=== PATIENT | female | born 1940 | race Caucasian/White ===

== ENCOUNTER 2020-09-22 17:07 | Inpatient (IN) | payer MEDICARE ==
--- NOTE | 2020-09-22 17:39 | Emergency Department Report ---
HPI - General Chief Complaint: Weakness Time Seen by Provider: 09/22/20 17:19 - HPI HPI: This is a 80-year-old female presents to the emergency department via EMS from home with complaint of generalized weakness and fatigue. The patient does not speak much Estonian and therefore her son is currently at bedside translating for us. He says that the patient has been dealing with some episodes of elevated and/or uncontrolled blood pressure over the past week. She had her first Covid shot at the end of July. She was recently due for the second but the pharmacist canceled the appointment secondary to her uncontrolled blood pressure. She does have a history of hypertension but the son says that the patient believes it is secondary to anxiety. The patient says that she did not get much sleep last night and then complained throughout the day that she has generalized weakness and fatigue. The patient walks without any walker, cane or assistance, but the son has been helping her get around today because of her symptoms. She has a primary care physician but is not seen them regarding her symptoms. She denies any fever, chest pain, shortness of breath, lower extremity swelling, abdominal pain, nausea, vomiting, diarrhea, dysuria. She has not taken anything for symptoms prior to presentation today. ED Past Medical Hx - Past Medical History Hx Hypertension: Yes Additional medical history: high cholesterol - Social History Smoking Status: Never Smoker Substance Use Type: None - Medications Home Medications: Home Medications Medication Instructions Recorded Confirmed Last Taken Type Simvastatin 20 mg PO DAILY 05/25/13 09/22/20 Unknown History amLODIPine 5 mg PO DAILY 05/25/13 09/22/20 Unknown History Alendronate Sodium 70 mg PO QDAY 09/22/20 09/22/20 Unknown History Losartan/Hydrochlorothiazide 50 each PO QDAY 09/22/20 09/22/20 Unknown History [Losartan-Hctz 50-12.5 mg Tab] ED Review of Systems ROS: Stated complaint: WEAKNESS Other details as noted in HPI Comment: All other systems reviewed and negative Constitutional: weakness. denies: fever Eyes: denies: eye pain, vision change ENT: denies: ear pain, throat pain Respiratory: denies: cough, shortness of breath Cardiovascular: denies: chest pain, palpitations Gastrointestinal: denies: abdominal pain, vomiting Genitourinary: denies: dysuria, discharge Musculoskeletal: denies: back pain, arthralgia Skin: denies: rash, lesions Neurological: denies: numbness, paresthesias Physical Exam - Physical Exam Vital Signs: Vital Signs 09/22/20 17:31 Temperature 98.2 F Pulse Rate 75 Respiratory 16 Rate Blood Pressure 130/53 [Right] O2 Sat by Pulse 98 Oximetry Physical Exam: GENERAL: The patient is well-developed well-nourished. HENT: Normocephalic. Atraumatic. Patient has moist mucous membranes. EYES: Extraocular motions are intact. Pupils equal reactive to light bilaterally. No nystagmus. NECK: Supple. Trachea is midline. CHEST/LUNGS: Clear to auscultation. There is no respiratory distress noted. HEART/CARDIOVASCULAR: Regular. There is no tachycardia. There is no murmur. ABDOMEN: Abdomen is soft, nontender. Patient has normal bowel sounds. SKIN: Skin is warm and dry. NEURO: The patient is awake, alert, and oriented. The patient is cooperative. The patient has no focal neurologic deficits. Normal speech. Cranial nerves II through XII grossly intact. No facial asymmetry. No pronator drift or dysmetria. Muscle strength 5 out of 5 upper and lower extremities bilaterally. MUSCULOSKELETAL: There is no tenderness or deformity. There is no limitation range of motion. ED Course Vital Signs 09/22/20 17:31 Temperature 98.2 F Pulse Rate 75 Respiratory 16 Rate Blood Pressure 130/53 [Right] O2 Sat by Pulse 98 Oximetry ED Medical Decision Making - Lab Data Result diagrams: 09/22/20 17:45 09/22/20 17:45 Lab Results 09/22/20 09/22/20 09/22/20 Range/Units 17:45 17:45 17:45 WBC 4.8 (4.5-11.0) K/mm3 RBC 4.06 (3.65-5.03) M/mm3 Hgb 13.2 (10.1-14.3) gm/dl Hct 37.9 (30.3-42.9) % MCV 93 (79-97) fl MCH 33 H (28-32) pg MCHC 35 H (30-34) % RDW 12.7 L (13.2-15.2) % Plt Count 347 (140-440) K/mm3 Lymph % (Auto) 17.9 (13.4-35.0) % Hardy % (Auto) 9.4 H (0.0-7.3) % Eos % (Auto) 0.0 (0.0-4.3) % Baso % (Auto) 0.3 (0.0-1.8) % Lymph # (Auto) 0.9 L (1.2-5.4) K/mm3 Hardy # (Auto) 0.5 (0.0-0.8) K/mm3 Eos # (Auto) 0.0 (0.0-0.4) K/mm3 Baso # (Auto) 0.0 (0.0-0.1) K/mm3 Seg Neutrophils % 72.4 H (40.0-70.0) % Seg Neutrophils # 3.5 (1.8-7.7) K/mm3 Sodium 121 L (137-145) mmol/L Potassium 3.8 (3.6-5.0) mmol/L Chloride 82.3 L (98-107) mmol/L Carbon Dioxide 28 (22-30) mmol/L Anion Gap 15 mmol/L BUN 10 (7-17) mg/dL Creatinine 0.5 L (0.6-1.2) mg/dL Estimated GFR > 60 ml/min BUN/Creatinine Ratio 20 % Glucose 106 H (65-100) mg/dL Hemoglobin A1c (4-6) % Calcium 9.1 (8.4-10.2) mg/dL Magnesium 1.90 (1.7-2.3) mg/dL Total Bilirubin 0.30 (0.1-1.2) mg/dL AST 20 (5-40) units/L ALT 25 (7-56) units/L Alkaline Phosphatase 53 (35-129) units/L Troponin T < 0.010 (0.00-0.029) ng/mL Total Protein 8.1 (6.3-8.2) g/dL Albumin 4.3 (3.9-5) g/dL Albumin/Globulin Ratio 1.1 % TSH 2.230 (0.270-4.200) mlU/mL 09/22/20 Range/Units 17:45 WBC (4.5-11.0) K/mm3 RBC (3.65-5.03) M/mm3 Hgb (10.1-14.3) gm/dl Hct (30.3-42.9) % MCV (79-97) fl MCH (28-32) pg MCHC (30-34) % RDW (13.2-15.2) % Plt Count (140-440) K/mm3 Lymph % (Auto) (13.4-35.0) % Hardy % (Auto) (0.0-7.3) % Eos % (Auto) (0.0-4.3) % Baso % (Auto) (0.0-1.8) % Lymph # (Auto) (1.2-5.4) K/mm3 Hardy # (Auto) (0.0-0.8) K/mm3 Eos # (Auto) (0.0-0.4) K/mm3 Baso # (Auto) (0.0-0.1) K/mm3 Seg Neutrophils % (40.0-70.0) % Seg Neutrophils # (1.8-7.7) K/mm3 Sodium (137-145) mmol/L Potassium (3.6-5.0) mmol/L Chloride (98-107) mmol/L Carbon Dioxide (22-30) mmol/L Anion Gap mmol/L BUN (7-17) mg/dL Creatinine (0.6-1.2) mg/dL Estimated GFR ml/min BUN/Creatinine Ratio % Glucose (65-100) mg/dL Hemoglobin A1c 6.1 H (4-6) % Calcium (8.4-10.2) mg/dL Magnesium (1.7-2.3) mg/dL Total Bilirubin (0.1-1.2) mg/dL AST (5-40) units/L ALT (7-56) units/L Alkaline Phosphatase (35-129) units/L Troponin T (0.00-0.029) ng/mL Total Protein (6.3-8.2) g/dL Albumin (3.9-5) g/dL Albumin/Globulin Ratio % TSH (0.270-4.200) mlU/mL - EKG Data -: EKG Interpreted by Me EKG shows normal: sinus rhythm, axis, intervals, QRS complexes, ST-T waves Rate: normal - EKG Data When compared to previous EKG there are: previous EKG unavailable Interpretation: normal EKG - Radiology Data Radiology results: report reviewed, image reviewed interpreted by me: Chest x-ray does not show any acute process. There are no pleural effusions, obvious pneumonia and there is no pneumothorax. No significant cardiomegaly. CT BRAIN: 09/22/2020 INDICATION / CLINICAL INFORMATION: Weakness. COMPARISON: None available. FINDINGS: BRAIN/INTRACRANIAL STRUCTURES: Unenhanced CT images of the brain demonstrate no evidence of acute intracranial abnormality. Ventricles and sulci are somewhat prominent in size, consistent with age- related atrophic change. Some chronic white matter hypoattenuation is noted in the cerebral hemispheric white matter, somewhat more pronounced in the left frontal subcortical white matter. There is no CT evidence of acute large vessel territory ischemic injury, hemorrhage, or mass. There are no abnormal extra- axial fluid collections. EXTRACRANIAL STRUCTURES: Unremarkable. IMPRESSION: No acute abnormality. Chronic and age-related changes. - Medical Decision Making This patient presents to the emergency department with generalized weakness and fatigue. On examination she does not have any focal, motor or sensory deficits and her cranial nerves are intact. EKG did not show any morphology consistent with ST elevation myocardial infarction or any arrhythmia. CT scan of the head without contrast did not show any hemorrhage, large vessel occlusion, or any other acute process. Chest x-ray did not show any pneumonia, pleural effusions, pneumothorax, or any acute process. The patient's labs are mostly unremarkable including CBC, metabolic panel, troponin, thyroid function and urinalysis, but it is significant for moderate to severe hyponatremia with a sodium level of 121. This is most likely the reason for the patient's symptoms. Patient was initially given a 500 cc normal saline bolus and once the labs resulted with the hyponatremia she was placed on maintenance IV fluid at 125 cc/h. Patient will be admitted to the hospital for further evaluation and treatment and was accepted for admission by the hospitalist, Dr. Montoya. Critical Care Time: No Critical care attestation.: If time is entered above; I have spent that time in minutes in the direct care of this critically ill patient, excluding procedure time. ED Disposition Clinical Impression: Hyponatremia syndrome, Weakness Disposition: OP ADMIT IP TO THIS HOSP Is pt being admited?: Yes Condition: Serious Time of Disposition: 20:11 - Assessment Assessment Interval: Baseline - Level of Consciousness 1a. Level of Consciousness: alert/keenly responsive - LOC Questions 1b. LOC Questions: answers both correctly - LOC Command 1c. LOC Commands: performs tasks correctly - Best Gaze 2. Best Gaze: normal - Visual 3. Visual: no visual loss - Facial Palsy 4. Facial Palsy: normal symmetrical movement - Motor Arm 5a. Motor Arm Left: no drift 5b. Motor Arm Right: no drift - Motor Leg 6a. Motor Leg Left: no drift 6b. Motor Leg Right: no drift - Limb Ataxia 7. Limb Ataxia: absent - Sensory 8. Sensory: normal - Best Language 9. Best Language: no aphasia - Dysarthria 10. Dysarthria: normal - Extinction and Inattention 11. Extinction/Inattention: no abnormality - Scoring Total Score: 0 Stroke Severity: No Stroke Symptoms
--- NOTE | 2020-09-22 17:52 | XRay Report ---
CHEST 1 VIEW 09/22/2020 5:29 PM INDICATION / CLINICAL INFORMATION: Weakness. COMPARISON: None available. FINDINGS: SUPPORT DEVICES: None. HEART / MEDIASTINUM: No significant abnormality. LUNGS / PLEURA: No significant pulmonary or pleural abnormality. No pneumothorax. ADDITIONAL FINDINGS: No significant additional findings. IMPRESSION: 1. No acute findings. Signer Name: Charles Swanson MD Signed: 09/22/2020 5:48 PM Workstation Name: [id number]
[2020-09-22] MEDS ORDERED: SODIUM CHLORIDE 0.9% 500 ML 500 ML IV ONE (18:10)
[2020-09-22 18:24] LABS: Basophils % (Auto) 0.3 % (0.0-1.8); Hematocrit 37.9 % (30.3-42.9); Hemoglobin 13.2 gm/dl (10.1-14.3); Lymphocytes # (Auto) 0.9 K/mm3 (1.2-5.4); Lymphocytes % (Auto) 17.9 % (13.4-35.0); Mean Corpuscular HGB Conc 35 % (30-34); Mean Corpuscular Volume 93 fl (79-97); Monocytes # (Auto) 0.5 K/mm3 (0.0-0.8); Monocytes % (Auto) 9.4 % (0.0-7.3); Platelet Count 347 K/mm3 (140-440); Red Blood Count 4.06 M/mm3 (3.65-5.03); Red Cell Distribution Width 12.7 % (13.2-15.2)
[2020-09-22 18:44] LABS: Alanine Aminotransferase 25 units/L (7-56); Albumin 4.3 g/dL (3.9-5); BUN/Creatinine Ratio 20; Blood Urea Nitrogen 10 mg/dL (7-17); Calcium 9.1 mg/dL (8.4-10.2); Hemolysis Index 3
[2020-09-22] MEDS ORDERED: SODIUM CHLORIDE 0.9% 1000 ML 1,000 ML IV ONE (18:54)
--- NOTE | 2020-09-22 18:56 | Cat Scan Report ---
CT BRAIN: 09/22/2020 INDICATION / CLINICAL INFORMATION: Weakness. COMPARISON: None available. FINDINGS: BRAIN/INTRACRANIAL STRUCTURES: Unenhanced CT images of the brain demonstrate no evidence of acute int racranial abnormality. Ventricles and sulci are somewhat prominent in size, consistent with age-relat ed atrophic change. Some chronic white matter hypoattenuation is noted in the cerebral hemispheric white matter, somewhat more pronounced in the left frontal subcortical white matter. There is no CT evidence of acute large vessel territory ischemic injury, hemorrhage, or mass. There a re no abnormal extra-axial fluid collections. EXTRACRANIAL STRUCTURES: Unremarkable. IMPRESSION: No acute abnormality. Chronic and age-related changes. All CT scans at this location are performed using dose reduction to ALARA by means of automated expos ure control. Signer Name: Danilo Gutierrez MD Signed: 09/22/2020 6:52 PM Workstation Name: [id number]
[2020-09-22 21:09] LABS: Bilirubin,Urine NEG (Negative); Blood,Urine NEG (Negative); Color,Urine Straw (Yellow); Protein,Urine <15 mg/dL mg/dL (Negative); Urobilinogen,Urine < 2.0 mg/dL (<2.0)
--- NOTE | 2020-09-22 21:31 | History and Physical Report ---
History of Present Illness Date of examination: 09/22/20 Date of admission: 09/22/20 20:11 Chief complaint: hyponatremia History of present illness: This is a 80-year-old female presents to the emergency department via EMS from home with complaint of generalized weakness and fatigue. The patient does not speak much Korean and therefore her son is currently at bedside translating for us. He says that the patient has been dealing with some episodes of elev ated and/or uncontrolled blood pressure over the past week. She had her first Covid shot at the end of July. She was recently due for the second but the pharmacist canceled the appointment secondary to her uncontrolled blood pressure. She does have a history of hypertension but the son says that the patient believes it is secondary to anxiety. The patient says that she did not get much sleep last night and then complained throughout the day that she has generalized weakness and fatigue. The patient walks without any walker, cane or assistance, but the son has been helping her get around today because of her symptoms. She has a primary care physician but is not seen them regarding her symptoms. She denies any fever, chest pain, shortness of breath, lower extremity swelling, abdominal pain, nausea, vomiting, diarrhea, dysuria. She has not taken anything for symptoms prior to presentation today. ED work-up shows WBC 4.8, hemoglobin 13.2, platelets 347 sodium level 121 potassium level 3.8, creatinine 0.5, serum glucose 106 Magnesium 1.9 troponin less than 0.01 Patient seen in the ED. Son at the bedside. Patient reports generalized weakness after taking Covid shot. She said she does not know if it is from the Covid or just anxiety. Patient reported history of hypertension, blood pressure medicine including hydrochlorothiazide. Patient denies chest pain, shortness of breath and nausea and vomiting. Patient is alert and oriented son at the bedside assisting with explanationpatient does not speak much Korean. I reviewed her lab, her medication record, and her vital signs. Patient is not in acute distress. Past History Past Surgical History: No surgical history Social history: lives with family Family history: no significant family history Medications and Allergies Allergies Allergy/AdvReac Type Severity Reaction Status Date / Time No Known Allergies Allergy Unverified 05/25/13 17:15 Home Medications Medication Instructions Recorded Confirmed Last Taken Type Simvastatin 20 mg PO DAILY 05/25/13 09/22/20 Unknown History amLODIPine 5 mg PO DAILY 05/25/13 09/22/20 Unknown History Alendronate Sodium 70 mg PO QDAY 09/22/20 09/22/20 Unknown History Losartan/Hydrochlorothiazide 50 each PO QDAY 09/22/20 09/22/20 Unknown History [Losartan-Hctz 50-12.5 mg Tab] Active Meds: Active Medications Sodium Chloride (Nacl 0.9% 1000 Ml) 1,000 mls @ 125 mls/hr IV ONCE ONE Stop: 09/23/20 02:53 Last Admin: 09/22/20 19:00 Dose: 125 mls/hr Documented by: Review of Systems Constitutional: fatigue, weakness Ears, nose, mouth and throat: no epistaxis, no bleeding gums Breasts: no discharge Cardiovascular: high blood pressure, no dyspnea on exertion Respiratory: no cough, no congestion Gastrointestinal: no abdominal pain Genitourinary Female: no pelvic pain Musculoskeletal: muscle weakness, muscle cramps, no neck stiffness Integumentary: no bullae, no lesions Neurological: no convulsions Psychiatric: anxiety, no confusion Endocrine: polydipsia Hematologic/Lymphatic: no easy bruising, no easy bleeding Allergic/Immunologic: no urticaria, no allergic rhinitis Exam - Constitutional Vitals: Temp Pulse Resp BP Pulse Ox 98.2 F 81 21 135/62 95 09/22/20 19:00 09/22/20 21:00 09/22/20 21:00 09/22/20 21:00 09/22/20 21:00 General appearance: Present: mild distress - EENT Eyes: Present: PERRL ENT: hearing intact, clear oral mucosa - Neck Neck: Present: supple, normal ROM - Respiratory Respiratory effort: normal Respiratory: bilateral: CTA - Cardiovascular Heart Sounds: Present: S1 & S2. Absent: rub, click - Extremities Extremities: pulses symmetrical, No edema Peripheral Pulses: within normal limits - Abdominal General gastrointestinal: Present: soft, non-tender, non-distended, normal bowel sounds Female genitourinary: Present: normal - Integumentary Integumentary: Present: clear, warm, dry - Musculoskeletal Musculoskeletal: generalized weakness - Psychiatric Psychiatric: appropriate mood/affect, intact judgment & insight, cooperative - Neurologic Neurologic: CNII-XII intact, moves all extremities - Allied Health Allied health notes reviewed: nursing HEART Score - HEART Score Troponin: Troponin T < 0.010 ng/mL (0.00-0.029) 09/22/20 17:45 Results - Labs CBC & Chem 7: 09/22/20 17:45 09/22/20 17:45 Labs: Abnormal lab results 09/22/20 09/22/20 Range/Units 17:45 17:45 MCH 33 H (28-32) pg MCHC 35 H (30-34) % RDW 12.7 L (13.2-15.2) % Hood % (Auto) 9.4 H (0.0-7.3) % Lymph # (Auto) 0.9 L (1.2-5.4) K/mm3 Seg Neutrophils % 72.4 H (40.0-70.0) % Sodium 121 L (137-145) mmol/L Chloride 82.3 L (98-107) mmol/L Creatinine 0.5 L (0.6-1.2) mg/dL Glucose 106 H (65-100) mg/dL Assessment and Plan - Patient Problems (1) Hyponatremia syndrome Current Visit: Yes Status: Acute Plan to address problem: Questionable cause slight dehydration We will hold hydrochlorothiazide Start IV hydration with normal saline Monitor sodium level, urine sodium and osmolarity We will consult director of teaching and learning if needed. (2) Generalized weakness Current Visit: Yes Status: Acute Plan to address problem: Questionable causehyponatremia PT OT consult (3) Essential (primary) hypertension Current Visit: Yes Status: Acute Plan to address problem: Monitor blood pressure Resume home antihypertensive As needed hydralazine (4) Hyperlipemia Current Visit: Yes Status: Acute Plan to address problem: resume home statin (5) DVT prophylaxis Current Visit: Yes Status: Acute Plan to address problem: Subcutaneous Lovenox
[2020-09-22] MEDS ORDERED: hydrALAZINE 20 MG/1 ML INJ IV PRN (21:51)
[2020-09-22] MEDS ORDERED: MAGNESIUM HYDROXIDE (MOM) ORAL LIQD UDC PO PRN (21:52)
[2020-09-22] MEDS ORDERED: ALUM-MAG HYDROXIDE-SIMETHICONE 200-200-20MG/5ML ORAL LIQD 30 ML PO PRN (21:52)
[2020-09-22] MEDS ORDERED: ONDANSETRON 4 MG/2 ML INJ IV PRN (21:52)
[2020-09-22] MEDS ORDERED: ACETAMINOPHEN 325 MG TAB PO PRN (21:52)
[2020-09-22] MEDS ORDERED: ALPRAZolam 0.25 MG TAB PO PRN (21:54)
[2020-09-22] MEDS ORDERED: traZODone 50 MG TAB PO PRN (21:54)
[2020-09-22] MEDS ORDERED: traMADol 50 MG TAB PO PRN (21:54)
[2020-09-22] MEDS ORDERED: SODIUM CHLORIDE 0.9% 1000 ML 1,000 ML IV SCH (22:00)
[2020-09-23] MEDS: PRAVASTATIN 40 MG TAB PO SCH ×2 (00:50→22:03)
[2020-09-23 06:41] LABS: Basophils % (Auto) 0.3 % (0.0-1.8); Eosinophils % (Auto) 0.3 % (0.0-4.3); Hematocrit 36.6 % (30.3-42.9); Hemoglobin 12.3 gm/dl (10.1-14.3); Lymphocytes # (Auto) 1.7 K/mm3 (1.2-5.4); Lymphocytes % (Auto) 29.2 % (13.4-35.0); Mean Corpuscular HGB Conc 34 % (30-34); Mean Corpuscular Volume 94 fl (79-97); Monocytes # (Auto) 0.6 K/mm3 (0.0-0.8); Monocytes % (Auto) 10.5 % (0.0-7.3); Platelet Count 356 K/mm3 (140-440); Red Cell Distribution Width 12.4 % (13.2-15.2)
[2020-09-23 06:51] LABS: Chol/HDL Ratio 2.26 %
[2020-09-23] MEDS: amLODIPine 10 MG TAB PO SCH (09:34)
[2020-09-23] MEDS: ENOXAPARIN 40 MG/0.4 ML INJ SUB-Q SCH (09:35)
[2020-09-23] MEDS: LOSARTAN 50 MG TAB PO SCH (09:35)
[2020-09-23 11:05] LABS: Alanine Aminotransferase 22 units/L (7-56); Albumin 3.5 g/dL (3.9-5); Blood Urea Nitrogen 9 mg/dL (7-17); Calcium 8.2 mg/dL (8.4-10.2); Hemolysis Index 10
[2020-09-23 11:07] LABS: BUN/Creatinine Ratio 18
[2020-09-23 11:22] LABS: Osmolality,Urine 218 Mosm/kg
[2020-09-23] MEDS: DEXTROSE 5% IN WATER 1,000 ML IV SCH (12:42)
[2020-09-23] MEDS ORDERED: POTASSIUM CHLORIDE ER 20 MEQ TAB PO ONE (13:24)
--- NOTE | 2020-09-23 13:33 | Progress Note ---
Assessment and Plan Assessment and plan: #Hyponatremia Likely due to hydrochlorothiazide use Sodium on admission-121. Patient started on normal saline Sodium this a.m. 131. Due to overcorrection, will DC normal saline and start patient on D5 water at this time Monitor sodium level every 6 hours for now #Generalized weakness From hyponatremia #Hypertension Hold hydrochlorothiazide Monitor blood pressure closely #Hyperlipidemia Statins #DVT prophylaxis-Heparin products History Interval history: This is a 80-year-old female presents to the emergency department via EMS from home with complaint of generalized weakness and fatigue. The patient does not speak much [place] and therefore her son is currently at bedside translating for us. He says that the patient has been dealing with some episodes of elevated and/or uncontrolled blood pressure over the past week. She had her first Covid shot at the end of July. She was recently due for the second but the pharmacist canceled the appointment secondary to her uncontrolled blood pressure. She does have a history of hypertension but the son says that the patient believes it is secondary to anxiety. The patient says that she did not get much sleep last night and then complained throughout the day that she has generalized weakness and fatigue. The patient walks without any walker, cane or assistance, but the son has been helping her get around today because of her symptoms. She has a primary care physician but is not seen them regarding her symptoms. She denies any fever, chest pain, shortness of breath, lower extre mity swelling, abdominal pain, nausea, vomiting, diarrhea, dysuria. She has not taken anything for symptoms prior to presentation today. ED work-up shows WBC 4.8, hemoglobin 13.2, platelets 347 sodium level 121 potassium level 3.8, creatinine 0.5, serum glucose 106 Magnesium 1.9 troponin less than 0.01 Patient seen in the ED. Son at the bedside. Patient reports generalized weakness after taking Covid shot. She said she does not know if it is from the Covid or just anxiety. Patient reported history of hypertension, blood pressure medicine including hydrochlorothiazide. Patient denies chest pain, shortness of breath and nausea and vomiting. Patient is alert and oriented son at the be dside assisting with explanationpatient does not speak much [place]. I reviewed her lab, her medication record, and her vital signs. Patient is not in acute distress. 09/23. Sodium level is better. DCed IV NS and started her on D5W due to overcorrection. Will monitor BMP today and make adjustments. Her mental status has improved. Hospitalist Physical - Physical exam Narrative exam: VITAL SIGNS: Reviewed. GENERAL: Awake HEAD: No signs of head trauma. EYES: Pupils are equal. Extraocular motions intact. MOUTH: Oropharynx is normal. NECK: No adenopathy, no JVD. CHEST: Chest with diminished breath sounds bilaterally. No wheezes, rales, or rhonchi. CARDIAC: normal S1 and S2, without murmurs, gallops, or rubs. ABDOMEN: Soft, non tender and non distended. No rebound or guarding, and no masses palpated. Bowel Sounds normal. MUSCULOSKELETAL: No edema NEUROLOGIC EXAM: Alert and oriented x3. No focal neurologic deficits SKIN: No obvious lesions - Constitutional Vitals: Temp Pulse Resp BP Pulse Ox 99.4 F 74 18 114/63 95 09/23/20 11:49 09/23/20 11:49 09/23/20 11:49 09/23/20 11:49 09/23/20 11:49 HEART Score - HEART Score Troponin: Troponin T < 0.010 ng/mL (0.00-0.029) 09/22/20 17:45 Results - Labs CBC & Chem 7: 09/23/20 05:40 09/23/20 10:18 Labs: Laboratory Last Values WBC 5.7 K/mm3 (4.5-11.0) 09/23/20 05:40 RBC 3.90 M/mm3 (3.65-5.03) 09/23/20 05:40 Hgb 12.3 gm/dl (10.1-14.3) 09/23/20 05:40 Hct 36.6 % (30.3-42.9) 09/23/20 05:40 MCV 94 fl (79-97) 09/23/20 05:40 MCH 32 pg (28-32) 09/23/20 05:40 MCHC 34 % (30-34) 09/23/20 05:40 RDW 12.4 % (13.2-15.2) L 09/23/20 05:40 Plt Count 356 K/mm3 (140-440) 09/23/20 05:40 Lymph % (Auto) 29.2 % (13.4-35.0) 09/23/20 05:40 [place] % (Auto) 10.5 % (0.0-7.3) H 09/23/20 05:40 Eos % (Auto) 0.3 % (0.0-4.3) 09/23/20 05:40 Baso % (Auto) 0.3 % (0.0-1.8) 09/23/20 05:40 Lymph # (Auto) 1.7 K/mm3 (1.2-5.4) 09/23/20 05:40 [place] # (Auto) 0.6 K/mm3 (0.0-0.8) 09/23/20 05:40 Eos # (Auto) 0.0 K/mm3 (0.0-0.4) 09/23/20 05:40 Baso # (Auto) 0.0 K/mm3 (0.0-0.1) 09/23/20 05:40 Seg Neutrophils % 59.7 % (40.0-70.0) 09/23/20 05:40 Seg Neutrophils # 3.4 K/mm3 (1.8-7.7) 09/23/20 05:40 Sodium 131 mmol/L (137-145) L D 09/23/20 10:18 Potassium 3.3 mmol/L (3.6-5.0) L 09/23/20 10:18 Chloride 94.5 mmol/L (98-107) L 09/23/20 10:18 Carbon Dioxide 25 mmol/L (22-30) 09/23/20 10:18 Anion Gap 15 mmol/L 09/23/20 10:18 BUN 9 mg/dL (7-17) 09/23/20 10:18 Creatinine 0.5 mg/dL (0.6-1.2) L 09/23/20 10:18 Estimated GFR > 60 ml/min 09/23/20 10:18 BUN/Creatinine Ratio 18 % 09/23/20 10:18 Glucose 131 mg/dL (65-100) H 09/23/20 10:18 Hemoglobin A1c 6.1 % (4-6) H 09/22/20 17:45 Osmolality 299 Mosm/kg 09/23/20 10:18 Calcium 8.2 mg/dL (8.4-10.2) L 09/23/20 10:18 Magnesium 1.90 mg/dL (1.7-2.3) 09/22/20 17:45 Total Bilirubin 0.30 mg/dL (0.1-1.2) 09/23/20 10:18 AST 19 units/L (5-40) 09/23/20 10:18 ALT 22 units/L (7-56) 09/23/20 10:18 Alkaline Phosphatase 46 units/L (35-129) 09/23/20 10:18 Troponin T < 0.010 ng/mL (0.00-0.029) 09/22/20 17:45 Total Protein 6.8 g/dL (6.3-8.2) 09/23/20 10:18 Albumin 3.5 g/dL (3.9-5) L 09/23/20 10:18 Albumin/Globulin Ratio 1.1 % 09/23/20 10:18 Triglycerides 109 mg/dL (2-149) 09/23/20 05:40 Cholesterol 147 mg/dL (50-199) 09/23/20 05:40 LDL Cholesterol Direct 78 mg/dL (50-130) 09/23/20 05:40 HDL Cholesterol 65 mg/dL (40-59) H 09/23/20 05:40 Cholesterol/HDL Ratio 2.26 % 09/23/20 05:40 TSH 2.230 mlU/mL (0.270-4.200) 09/22/20 17:45 Urine Color Straw (Yellow) 09/22/20 20:21 Urine Turbidity Clear (Clear) 09/22/20 20:21 Urine pH 6.0 (5.0-7.0) 09/22/20 20:21 Ur Specific [place] 1.004 (1.003-1.030) 09/22/20 20:21 Urine Protein <15 mg/dl mg/dL (Negative) 09/22/20 20:21 Urine Glucose (UA) Neg mg/dL (Negative) 09/22/20 20:21 Urine Ketones Neg mg/dL (Negative) 09/22/20 20:21 Urine Blood Neg (Negative) 09/22/20 20:21 Urine Nitrite Neg (Negative) 09/22/20 20:21 Urine Bilirubin Neg (Negative) 09/22/20 20:21 Urine Urobilinogen < 2.0 mg/dL (<2.0) 09/22/20 20:21 Ur Leukocyte Esterase Sm (Negative) 09/22/20 20:21 Urine WBC (Auto) 1.0 /HPF (0.0-6.0) 09/22/20 20:21 Urine RBC (Auto) 1.0 /HPF (0.0-6.0) 09/22/20 20:21 Urine Osmolality 218 Mosm/kg 09/23/20 07:00 Urine Sodium 21 mmol/L 09/23/20 07:00 Delatorre/IV: Voiding Method Incontinent Active Medications - Current Medications Current Medications: Generic Name Dose Route Start Last Admin Trade Name Freq PRN Reason Stop Dose Admin Acetaminophen 650 mg 09/22/20 21:52 Acetaminophen 325 Mg Tab PO Q4H PRN Pain MILD(1-3)/Fever >100.5/FREGOSO Al Hydrox/Mg Hydrox/Simethicone 30 ml 09/22/20 21:52 Alum-Mag Hydroxide-Simethicone [id number]/5ml Oral Liqd 30 Ml PO Q4H PRN Indigestion Alprazolam 0.25 mg 09/22/20 21:54 Alprazolam 0.25 Mg Tab PO Q8H PRN Anxiety Amlodipine Besylate 5 mg 09/23/20 10:00 09/23/20 09:34 Amlodipine 10 Mg Tab PO 5 mg QDAY IRENA Administration Enoxaparin Sodium 40 mg 09/23/20 10:00 09/23/20 09:35 Enoxaparin 40 Mg/0.4 Ml Inj SUB-Q 40 mg DAILY IRENA Administration Protocol Hydralazine HCl 5 mg 09/22/20 21:51 Hydralazine 20 Mg/1 Ml Inj IV Q4HR PRN Hypertension Dextrose 1,000 mls @ 75 mls/hr 09/23/20 13:00 09/23/20 12:42 D5w IV 75 mls/hr DIRECT IRENA Administration Losartan Potassium 50 mg 09/23/20 10:00 09/23/20 09:35 Losartan 50 Mg Tab PO 50 mg QDAY IRENA Administration Magnesium Hydroxide 30 ml 09/22/20 21:52 Magnesium Hydroxide (Mom) Oral Liqd Udc PO Q4H PRN Constipation Ondansetron HCl 4 mg 09/22/20 21:52 Ondansetron 4 Mg/2 Ml Inj IV Q8H PRN Nausea And Vomiting Pravastatin Sodium 40 mg 09/22/20 22:00 09/23/20 00:50 Pravastatin 40 Mg Tab PO 40 mg QHS IRENA Administration Tramadol HCl 50 mg 09/22/20 21:54 Tramadol 50 Mg Tab PO Q4H PRN Pain, Moderate (4-6) Trazodone HCl 50 mg 09/22/20 21:54 Trazodone 50 Mg Tab PO QHS PRN Insomnia
[2020-09-23 20:01] LABS: BUN/Creatinine Ratio 15; Blood Urea Nitrogen 9 mg/dL (7-17); Calcium 8.3 mg/dL (8.4-10.2); Hemolysis Index 3
[2020-09-24] MEDS: DEXTROSE 5% IN WATER 1,000 ML IV SCH (01:55)
[2020-09-24 06:31] LABS: Alanine Aminotransferase 21 units/L (7-56); Albumin 3.9 g/dL (3.9-5); Blood Urea Nitrogen 8 mg/dL (7-17); Calcium 8.3 mg/dL (8.4-10.2); Hemolysis Index 3
[2020-09-24 06:38] LABS: BUN/Creatinine Ratio 20
--- NOTE | 2020-09-24 08:10 | Discharge Summary ---
Providers - Providers Date of Admission: 09/22/20 20:11 Date of discharge: 09/24/20 Attending physician: RIMA DELEON 09/23/20 08:23 Physical Therapy Evaluation and Treat [CONS] Routine Comment: Reason For Exam: Ambulate and treat 09/23/20 09:20 Occupational Therapy Evaluate and Treat [CONS] Routine Comment: Reason For Exam: Debility 09/23/20 13:44 Physical Therapy Evaluation and Treat [CONS] Urgent Comment: Reason For Exam: PT to eval & treat for decrease ROM, BLE weakness Primary care physician: RAMONA FREGOSO Hospitalization Condition: Serious Hospital course: This is a 80-year-old female presents to the emergency department via EMS from home with complaint of generalized weakness and fatigue. The patient does not speak much [place]ian and therefore her son is currently at bedside translating for us. He says that the patient has been dealing with some episodes of elevated and/or uncontrolled blood pressure over the past week. She had her first Covid shot at the end of July. She was recently due for the second but the pharmacist canceled the appointment secondary to her uncontrolled blood pressure. She does have a history of hypertension but the son says that the patient believes it is secondary to anxiety. The patient says that she did not get much sleep last night and then complained throughout the day that she has generalized weakness and fatigue. The patient walks without any walker, cane or assistance, but the son has been helping her get around today because of her symptoms. She has a primary care physician but is not seen them regarding her symptoms. She denies any fever, chest pain, shortness of breath, lower extremity swelling, abdominal pain, nausea, vomiting, diarrhea, dysuria. She has not taken anything for symptoms prior to presentation today. ED work-up shows WBC 4.8, hemoglobin 13.2, platelets 347 sodium level 121 potassium level 3.8, creatinine 0.5, serum glucose 106 Magnesium 1.9 troponin less than 0.01 Patient seen in the ED. Son at the bedside. Patient reports generalized weakness after taking Covid shot. She said she does not know if it is from the Covid or just anxiety. Patient reported history of hypertension, blood pressure medicine including hydrochlorothiazide. Patient denies chest pain, shortness of breath and nausea and vomiting. Patient is alert and oriented son at the bedside assisting with explanationpatient does not speak much [place]ian. I reviewed her lab, her medication record, and her vital signs. Patient is not in acute distress. 09/23. Sodium level is better. DCed IV NS and started her on D5W due to overcorrection. Will monitor BMP today and make adjustments. Her mental status has improved. 09/24. Her sodium has improved. She is stable to be discharged. She will continue to hold HCTZ for now and follow up with her PCP for repeat labs in a week. Disposition: DC-01 TO HOME OR SELFCARE Final Discharge Diagnosis (Prints w/discharge instructions): Hyponatremia Time spent for discharge: 36 mins - Discharge Diagnoses (1) Essential (primary) hypertension Status: Acute (2) Generalized weakness Status: Acute (3) Hyperlipemia Status: Acute (4) Hyponatremia syndrome Status: Acute Core Measure Documentation - Palliative Care Palliative Care/ Comfort Measures: Not Applicable - Core Measures Any of the following diagnoses?: none Exam - Physical Exam Narrative exam: VITAL SIGNS: Reviewed. GENERAL: Awake HEAD: No signs of head trauma. EYES: Pupils are equal. Extraocular motions intact. MOUTH: Oropharynx is normal. NECK: No adenopathy, no JVD. CHEST: Chest with diminished breath sounds bilaterally. No wheezes, rales, or rhonchi. CARDIAC: normal S1 and S2, without murmurs, gallops, or rubs. ABDOMEN: Soft, non tender and non distended. No rebound or guarding, and no masses palpated. Bowel Sounds normal. MUSCULOSKELETAL: No edema NEUROLOGIC EXAM: Alert and oriented x3. No focal neurologic deficits SKIN: No obvious lesions - Constitutional Vitals: Temp Pulse Resp BP Pulse Ox 97.8 F 63 18 116/60 97 09/24/20 03:48 09/24/20 03:48 09/24/20 03:48 09/24/20 03:48 09/24/20 03:48 Plan Diet: low salt Additional Instructions: Stop losartan/hydrochlorothiazide combination for now. Take losartan as prescribed. Follow up with PCP in 5-7 days for repeat sodium levels Follow up with: RAMONA FREGOSO MD [Primary Care Provider] - 7 Days Prescriptions: Losartan [Cozaar] 50 mg PO QDAY #30 tablet
[2020-09-24] MEDS: ENOXAPARIN 40 MG/0.4 ML INJ SUB-Q SCH (11:14)
[2020-09-24] MEDS: amLODIPine 10 MG TAB PO SCH (11:16)
[2020-09-24] MEDS: LOSARTAN 50 MG TAB PO SCH (11:17)
[2020-09-24 12:40] VITALS: BP 138/57
--- NOTE | 2020-09-25 10:36 | Electrocardiograph Report ---
[facility] Test Date: 2020-09-22 Test Time: 17:28:28 Pat Name: ANNI REYNAGA Department: Room: A478 1 Gender: F [employer] Manager: NARENDRA : 1940 Requested By: ROQUE CORONA Order Number: [id number] Reading MD: Annmarie Rodriguez Measurements Intervals [place] Rate: 75 P: 0 FL: 109 QRS: -29 QRSD: 102 T: -2 QT: 437 QTc: 487 Interpretive Statements Sinus rhythm No previous ECG available for comparison Electronically Signed On 09-25-2020 10:36:03 EDT by Annmarie Rodriguez
== END 2020-09-24 13:19 | disposition home health service (06) | DRG 641 ==
LOC: ED 17:07 → 3A 20:11 → 4A 21:08
PROVIDERS: ADMIT Internal Medicine Geriatric Medicine; ATTEND Internal Medicine
DX: E87.1 Hypo-osmolality and hyponatremia (principal); I10 Essential (primary) hypertension; F41.9 Anxiety disorder, unspecified; E78.5 Hyperlipidemia, unspecified; Z79.899 Other long term (current) drug therapy
CPT/HCPCS: 36415; 70450; 71045; 80048; 80053; 80061; 81001; 83036; 83735; 83930; 83935; 84300; 84443; 84484; 85025; 93005; 96365; 96366; 96367; 96375; 96376; G0378; A9270-GY; J1650; J7030; J7040; J7070